=== PATIENT | male | born 1985 | race Caucasian/White ===

== ENCOUNTER 2021-09-23 04:18 | Emergency (ER) | payer BC, OTHER ==
[2021-09-23] MEDS ORDERED: Sodium Chloride 0.9% 1000 ML 1,000 ML IV STA (04:32)
--- NOTE | 2021-09-23 04:32 | ERPHSYRPT ---
- History of Present Illness Time Seen by Provider: 09/23/21 04:31 Source: patient, family Exam Limitations: no limitations Physician History: This is a 36-year-old white male who got up in the middle of the night to use the restroom (urinate) and he fell hitting his in head neck on the bathtub. Patient complains of neck pain and back pain. Patient was brought into the emergency department via EMS with a c-collar in place. Patient states he is not having chest pain. He states he had a mild episode 10 years ago where he felt dizzy when he stood up. He is never fallen and hit his head in the past. He denies alcohol ingestion. He denies illicit drug use. Patient does not have shortness of breath. He has no abdominal pain. He has no nausea vomiting or diarrhea. He has no flulike symptoms. He has not had fevers. Patient and his spouse state that they were outside working quite a bit. Patient has not been drinking water or other fluids to a great extent over the last couple days despite extra physical work. Patient is not taking any medicines chronically. Is been no new medications. Witnessed: unwitnessed Timing/Duration: today, resolved prior to arrival Precipitating Factors: injury (Head and neck) Context: standing Loss of Consciousness: brief (seconds) Charcter of event(s): other (Syncopal episode) Allergies/Adverse Reactions: No Known Drug Allergies Allergy (Verified 09/23/21 04:41) Home Medications: No Reportable Medications [No Reported Medications] 09/23/21 [History] Travel Risk - International Travel Have you traveled outside of the country in past 3 weeks: No - Coronavirus Screening Are you exhibiting any of the following symptoms?: No Close contact with a COVID-19 positive Pt in past 14-21 Days: No - Past Medical History Pertinent Past Medical History: Yes - Past Surgical History Past Surgical History: Yes - Review of Systems Constitutional: No Symptoms Eyes: No Symptoms Ears, Nose, & Throat: No Symptoms, Other (C-collar in place) Respiratory: No Symptoms Cardiac: No Symptoms Abdominal/Gastrointestinal: No Symptoms Genitourinary Symptoms: No Symptoms Musculoskeletal: No Symptoms Neurological: No Symptoms Psychological: No Symptoms Endocrine: No Symptoms Hematologic/Lymphatic: No Symptoms Immunological/Allergic: No Symptoms All Other Systems: Reviewed and Negative Physical Exam - Nursing Vital Signs Nursing Vital Signs: Initial Vital Signs Temperature 97.5 F 09/23/21 04:21 Pulse Rate 52 L 09/23/21 04:21 Respiratory Rate 16 09/23/21 04:21 Blood Pressure 98/68 09/23/21 04:21 O2 Sat by Pulse Oximetry 100 09/23/21 04:21 Pain Scale Pain Intensity 0 - [place] Coma Scale Best Eye Response (Robby): (4) open spontaneously Best Verbal Response (Robby): (5) oriented Best Motor Response (Robby): (6) obeys commands [place] Total: 15 - Physical Exam General Appearance: no apparent distress, alert, anxiety Eye Exam: bilateral eye: normal inspection, PERRL, EOMI Ears, Nose, Throat Exam: normal ENT inspection, TMs normal, pharynx normal, moist mucous membranes Neck Exam: other (Patient has a cervical collar in place) Respiratory: normal breath sounds, lungs clear, airway intact, No chest tenderness, No respiratory distress Cardiovascular: bradycardia Gastrointestinal: soft, normal bowel sounds, No tenderness Rectal Exam: not done Back Exam: normal inspection, normal range of motion, No CVA tenderness, No vertebral tenderness Extremity Exam: normal inspection, normal range of motion, pelvis stable Mental Status: alert, oriented x 3, cooperative manager post Exam: normal hearing, normal speech, PERRL, tongue midline Motor/Sensory: no motor deficit, no sensory deficit, no pronator drift Skin Exam: normal color, warm, dry SpO2 Interpretation: normal O2 Delivery: Room Air - Course Nursing assessment & vital signs reviewed: Yes EKG Interpreted by Me: RATE (51), Sinus Rhythm, NORMAL AXIS, NORMAL INTERVALS, NORMAL QRS, NORMAL ST-T, Other Ordered Tests: Active Orders 24 hr Category Date Time Status Snack Stewardess STAT Care 09/23/21 04:33 Active Clean Catch Urine Specimen STAT Care 09/23/21 04:32 Active EKG-ER Only STAT Care 09/23/21 04:32 Active IV Insertion STAT Care 09/23/21 04:32 Active Pulse Oximetry (ED) STAT Care 09/23/21 04:32 Active CERVICAL SPINE WO CONTRAST [CT] Stat Exams 09/23/21 04:33 Taken HEAD WITHOUT CONTRAST [CT] Stat Exams 09/23/21 04:33 Taken CBC W DIFF Stat Lab 09/23/21 05:15 Completed CMP Stat Lab 09/23/21 05:15 Completed ETHYL ALCOHOL Stat Lab 09/23/21 05:15 Completed POCT GLUCOSE Stat Lab 09/23/21 05:06 Received POCT GLUCOSE Stat Lab 09/23/21 05:08 Completed UA W/RFX CULTURE Stat Lab 09/23/21 05:32 Completed Urine Triage Profile Stat Lab 09/23/21 05:32 Completed Medication Summary Discontinued Medications Generic Name Dose Route Start Last Admin Trade Name Lavelle PRN Reason Stop Dose Admin Sodium Chloride 1,000 mls @ 999 mls/hr 09/23/21 04:32 09/23/21 06:03 Sodium Chloride 0.9% 1000 Ml IV 09/23/21 05:32 Infused .Q1H1M STA Infusion Sodium Chloride Confirm 09/23/21 05:05 Sodium Chloride 0.9% 1000 Ml Administered 09/23/21 05:06 Dose 1,000 mls @ ud .ROUTE .STK-MED ONE Lab/Rad Data: Laboratory Result Diagrams 09/23/21 05:15 09/23/21 05:15 Laboratory Results 09/23/21 09/23/21 09/23/21 Range/Units 05:32 05:32 05:15 WBC (4.0-10.5) x10^3/uL RBC (4.1-5.6) x10^6/uL Hgb (12.5-18.0) g/dL Hct (42-50) % MCV (78-100) fL MCH (26-32) pg MCHC (32-36) g/dL RDW (11.5-14.0) % Plt Count (150-450) x10^3/uL MPV (7.5-11.0) fL Gran % (36.0-66.0) % Immature Gran % (Auto) (0.00-0.4) % Nucleat RBC Rel Count (0.00-0.1) % Eos # (Auto) (0-0.5) x10^3/uL Immature Gran # (Auto) (0.00-0.03) x10^3u/L Absolute Lymphs (auto) (1.0-4.6) x10^3/uL Absolute Monos (auto) (0.0-1.3) x10^3/uL Absolute Nucleated RBC (0.00-0.01) x10^3u/L Lymphocytes % (24.0-44.0) % Monocytes % (0.0-12.0) % Eosinophils % (0.00-5.0) % Basophils % (0.0-0.4) % Absolute Granulocytes (1.4-6.9) x10^3/uL Basophils # (0-0.4) x10^3/uL Sodium 135 L (137-145) mmol/L Potassium 3.5 (3.5-5.1) mmol/L Chloride 103 (98-107) mmol/L Carbon Dioxide 27 (22-30) mmol/L Anion Gap 8.5 (5-15) MEQ/L BUN 11 (9-20) mg/dL Creatinine 0.87 (0.66-1.25) mg/dL Estimated GFR > 60.0 ML/MIN Glucose 96 (74-106) mg/dL POC Glucometer (74 to 106) mg/dL Calcium 8.8 (8.4-10.2) mg/dL Total Bilirubin 0.50 (0.2-1.3) mg/dL AST 33 (17-59) U/L ALT 51 H (0-50) U/L Alkaline Phosphatase 69 (38-126) U/L Serum Total Protein 6.7 (6.3-8.2) g/dL Albumin 4.0 (3.5-5.0) g/dL Urinalys Dipstick Clnc MAIN LAB Urine Color YELLOW (YELLOW) Urine Appearance CLEAR (CLEAR) Urine pH 6.5 (5-6) Ur Specific Helm 1.015 (1.005-1.025) POC Urine Protein Conf NEGATIVE (Negative) Urine Ketones TRACE (NEGATIVE) Urine Nitrite NEGATIVE (NEGATIVE) Urine Bilirubin NEGATIVE (NEGATIVE) Urine Urobilinogen 0.2 (0-1) mg/dL Urine Leukocytes NEGATIVE (NEGATIVE) Urine WBC (Auto) NONE (0-5) /HPF Urine RBC (Auto) NONE (0-2) /HPF U Epithel Cells (Auto) NONE (FEW) /HPF Urine Bacteria (Auto) NONE (NEGATIVE) /HPF Urine RBC NEGATIVE (0-5) Eder/ul Urine Mucus (Auto) SLIGHT (NEGATIVE) /HPF Ur Culture Indicated? NO Urine Glucose NEGATIVE (NEGATIVE) mg/dL Urine Opiates Level NEGATIVE (NEGATIVE) Ur Methadone NEGATIVE (NEGATIVE) Urine Barbiturates NEGATIVE (NEGATIVE) Ur Phencyclidine (PCP) NEGATIVE (NEGATIVE) Urine Amphetamine NEGATIVE (NEGATIVE) U Benzodiazepine Level NEGATIVE (NEGATIVE) Urine Cocaine NEGATIVE (NEGATIVE) Urine Marijuana (THC) NEGATIVE (NEGATIVE) Ethyl Alcohol < 10 (0-10) mg/dL 09/23/21 09/23/21 Range/Units 05:15 05:08 WBC 4.8 (4.0-10.5) x10^3/uL RBC 4.93 (4.1-5.6) x10^6/uL Hgb 14.8 (12.5-18.0) g/dL Hct 42.7 (42-50) % MCV 86.6 (78-100) fL MCH 30.0 (26-32) pg MCHC 34.7 (32-36) g/dL RDW 11.8 (11.5-14.0) % Plt Count 164 (150-450) x10^3/uL MPV 11.0 (7.5-11.0) fL Gran % 57.9 (36.0-66.0) % Immature Gran % (Auto) 0.2 (0.00-0.4) % Nucleat RBC Rel Count 0.0 (0.00-0.1) % Eos # (Auto) 0.12 (0-0.5) x10^3/uL Immature Gran # (Auto) 0.01 (0.00-0.03) x10^3u/L Absolute Lymphs (auto) 1.36 (1.0-4.6) x10^3/uL Absolute Monos (auto) 0.48 (0.0-1.3) x10^3/uL Absolute Nucleated RBC 0.00 (0.00-0.01) x10^3u/L Lymphocytes % 28.4 (24.0-44.0) % Monocytes % 10.0 (0.0-12.0) % Eosinophils % 2.5 (0.00-5.0) % Basophils % 1.0 (0.0-0.4) % Absolute Granulocytes 2.77 (1.4-6.9) x10^3/uL Basophils # 0.05 (0-0.4) x10^3/uL Sodium (137-145) mmol/L Potassium (3.5-5.1) mmol/L Chloride (98-107) mmol/L Carbon Dioxide (22-30) mmol/L Anion Gap (5-15) MEQ/L BUN (9-20) mg/dL Creatinine (0.66-1.25) mg/dL Estimated GFR ML/MIN Glucose (74-106) mg/dL POC Glucometer 97 (74 to 106) mg/dL Calcium (8.4-10.2) mg/dL Total Bilirubin (0.2-1.3) mg/dL AST (17-59) U/L ALT (0-50) U/L Alkaline Phosphatase (38-126) U/L Serum Total Protein (6.3-8.2) g/dL Albumin (3.5-5.0) g/dL Urinalys Dipstick Clnc Urine Color (YELLOW) Urine Appearance (CLEAR) Urine pH (5-6) Ur Specific Helm (1.005-1.025) POC Urine Protein Conf (Negative) Urine Ketones (NEGATIVE) Urine Nitrite (NEGATIVE) Urine Bilirubin (NEGATIVE) Urine Urobilinogen (0-1) mg/dL Urine Leukocytes (NEGATIVE) Urine WBC (Auto) (0-5) /HPF Urine RBC (Auto) (0-2) /HPF U Epithel Cells (Auto) (FEW) /HPF Urine Bacteria (Auto) (NEGATIVE) /HPF Urine RBC (0-5) Eder/ul Urine Mucus (Auto) (NEGATIVE) /HPF Ur Culture Indicated? Urine Glucose (NEGATIVE) mg/dL Urine Opiates Level (NEGATIVE) Ur Methadone (NEGATIVE) Urine Barbiturates (NEGATIVE) Ur Phencyclidine (PCP) (NEGATIVE) Urine Amphetamine (NEGATIVE) U Benzodiazepine Level (NEGATIVE) Urine Cocaine (NEGATIVE) Urine Marijuana (THC) (NEGATIVE) Ethyl Alcohol (0-10) mg/dL - Progress Progress: improved Progress Note: 09/23/21 06:21 CT scan of head without contrast shows no acute intracranial abnormality. CT scan of the cervical spine without contrast shows no acute fracture or subluxation Counseled pt/family regarding: lab results, diagnosis, need for follow-up, rad results - Departure Departure Disposition: Home Clinical Impression: Episode of syncope Condition: Stable Critical Care Time: No Referrals: DOCTOR,NO FAMILY [Primary Care Provider] - Follow up/PCP as directed Additional Instructions: Drink plenty of fluids. Do not perform excessive lifting running jumping or other type of activity. Follow-up with the Holter monitor as discussed.
[2021-09-23] MEDS ORDERED: Sodium Chloride 0.9% 1000 ML 1,000 ML ONE (05:05)
[2021-09-23 05:40] LABS: Absolute Neutrophil Ct (ANC) 2.77 x10^3/uL (1.4-6.9); Basophil (Absolute #) 0.05 x10^3/uL (0-0.4); Eosinophil % 2.5 % (0.00-5.0); Eosinophil (Absolute #) 0.12 x10^3/uL (0-0.5); Hematocrit 42.7 % (42-50); Hemoglobin 14.8 g/dL (12.5-18.0); Lymphocyte (Absolute #) 1.36 x10^3/uL (1.0-4.6); Lymphocytes % 28.4 % (24.0-44.0); Mean Cell Volume 86.6 fL (78-100); Mean Corpuscular Hgb Concent. 34.7 g/dL (32-36); Monocyte (Absolute #) 0.48 x10^3/uL (0.0-1.3); Neutrophil % 57.9 % (36.0-66.0); Platelet Count 164 x10^3/uL (150-450); Red Blood Count 4.93 x10^6/uL (4.1-5.6); Red Cell Distribution Width 11.8 % (11.5-14.0); White Blood Count 4.8 x10^3/uL (4.0-10.5)
[2021-09-23 05:47] LABS: ALKALINE PHOSPHATASE 69 U/L (38-126); ANION GAP 8.5 MEQ/L (5-15); BLOOD UREA NITROGEN 11 mg/dL (9-20); CHLORIDE 103 mmol/L (98-107); Calcium 8.8 mg/dL (8.4-10.2); Carbon Dioxide 27 mmol/L (22-30); Creatinine 1 0.87 mg/dL (0.66-1.25); EST GLOMERULAR FILTRATION RATE > 60.0 ML/MIN; ETHYL ALCOHOL < 10 mg/dL (0-10); Glucose 96 mg/dL (74-106); Potassium 3.5 mmol/L (3.5-5.1); SGOT/AST 33 U/L (17-59); SGPT/ALT 51 U/L (0-50); SODIUM 135 mmol/L (137-145); Total Protein 6.7 g/dL (6.3-8.2)
[2021-09-23 05:49] LABS: Appearance CLEAR (CLEAR); Bilirubin NEGATIVE (NEGATIVE); Glucose NEGATIVE (NEGATIVE); Ketones TRACE (NEGATIVE); Ph 6.5 (5-6); RBC NEGATIVE Ery/ul (0-5); Specific Gravity 1.015 (1.005-1.025)
[2021-09-23 05:50] LABS: Dipstick done @ ? MAIN LAB; Mucus SLIGHT /HPF (NEGATIVE); Nitrite NEGATIVE (NEGATIVE); Protein,Urine Dip NEGATIVE (Negative); Urobilinogen 0.2 mg/dL (0-1)
[2021-09-23 05:54] LABS: Urine Cultured Indicated? NO
[2021-09-23 05:58] LABS: Amphetamine,Urine NEGATIVE (NEGATIVE); Barbiturate,Urine NEGATIVE (NEGATIVE); Benzodiazepine,Urine NEGATIVE (NEGATIVE); Cocaine,Urine NEGATIVE (NEGATIVE); Methadone,Urine NEGATIVE (NEGATIVE); Opiate,Urine NEGATIVE (NEGATIVE); PCP,Urine NEGATIVE (NEGATIVE); THC,Urine NEGATIVE (NEGATIVE)
[2021-09-23 06:03] VITALS: PULSE 56
[2021-09-23 07:02] VITALS: BP 107/68; O2SAT 100
--- NOTE | 2021-09-23 07:29 | XRAY ---
Indication: Syncopal episode. Status post fall. Multiple contiguous axial images obtained through the head without contrast. Comparison: None Normal appearing brain parenchyma, ventricles, bony calvarium. Visualized paranasal sinuses and mastoid air cells are clear. Impression: Normal CT head without contrast exam. Comment: Preliminary interpretation made by [facility]. No critical discrepancy.
--- NOTE | 2021-09-23 07:31 | XRAY ---
Indication: Syncopal episode. Status post fall. Multiple contiguous axial images obtained through the cervical spine. Sagittal and coronal reformatted images obtained. Comparison: None Axial images negative for acute fracture, suspicious bony lesions, or spinal canal stenosis. Facets are symmetric. Minimal atlantoaxial degenerative vacuum phenomenon. Sagittal and coronal reformatted images demonstrates mild lordotic reversal, positional versus paraspinal spasm. Vertebral body heights/disc spaces maintained. No acute compression fracture, subluxation, or jumped facet. Normal appearing craniocervical junction. Visualized noncontrasted soft tissues including on the apices are unremarkable. Impression: 1. Negative acute fracture/subluxation. 2. Cervical lordotic reversal, positional versus paraspinal spasm. 3. Atlantoaxial degenerative vacuum phenomenon. Comment: Preliminary interpretation made by [facility]. No critical discrepancy.
== END 2021-09-23 07:19 | disposition home or self-care (01) ==
LOC: ED 04:18
DX: R55 Syncope and collapse (principal); M54.2 Cervicalgia; M54.9 Dorsalgia, unspecified; W18.39XA Other fall on same level, initial encounter; Y92.002 Bathroom of unspecified non-institutional (private) residence as the place of occurrence of the external cause
CPT/HCPCS: 36000; 36415; 70450; 72125; 80053; 80307; 81015; 82947; 85025; 93005; 93041; 93225; 94760; 96360; 99284; G0480